=== PATIENT | female | born 1980 | race Caucasian/White ===

== ENCOUNTER 2019-06-03 21:25 | Emergency (ER) | payer MEDICAID ==
[~2019-06-03] VITALS: Ht 154.9 cm; Wt 97.7 kg
[2019-06-03 21:40] VITALS: Ht 154.9 cm; Wt 97.7 kg
[2019-06-03] MEDS ORDERED: MINIPRESS2 MG PO (21:40)
[2019-06-03] MEDS ORDERED: TRAZODONE HCL300 MG PO (21:41)
[2019-06-03] MEDS ORDERED: MICONAZOLE NITR28 GM TOPICAL (22:06)
[2019-06-03 22:20] VITALS: BP 158/103
== END 2019-06-03 22:23 | disposition home or self-care (01) ==
LOC: D.ER 21:25
DX: B35.4 Tinea corporis (principal)